=== PATIENT | male | born 1940 | race Caucasian/White ===

== ENCOUNTER → 2018-03-22 | Outpatient (CLI) | payer MEDICARE, OTHER ==
[~2018-03-22] VITALS: Ht 167.6 cm; Wt 78.5 kg
[~2018-03-22] MED LIST: AMLODIPINE BESY10 MG PO; ASPIR 8181 MG PO; ASPIRIN325 PO; BISOPROLOL FUMAR5 MG PO; EFFIENT10 MG PO; IMDUR 30 MG TAB30 M1 PO; LIPITOR80 MG PO; LISINOPRIL20 MG PO; MOBIC15 MG PO; PERCOCET PO; PLAVIX 75 MG TA75 M1 PO; PRINZIDE 20-251 EACH PO; RANITIDINE 150150 M1 PO; TOPROL XL50 MG PO; TYLENOL325 MG PO; VICODIN 5-5001 EACH PO; VITAMIN D250000 UNIT PO
[2018-03-22 11:12] VITALS: BP 126/58
[2018-03-22 11:22] LABS: HEMATOCRIT 41.3 % (42.0-52.0); HEMOGLOBIN 13.9 gm/dL (14.0-18.0); MCH 30.8 pg (26.0-34.0); MCHC 33.6 g/dL (28.0-37.0); MCV 91.5 fL (80.0-100.0); MPV 7.7 fl. (7.2-11.1); RBC 4.51 mil/uL (4.50-6.00); RDW-CV 13.5 % (10.5-14.5); WBC 6.8 thou/uL (4.0-11.0)
[2018-03-22 11:32] LABS: ANION GAP 9 mmol/L (7-16); BUN 25 mg/dL (7-18); CALCIUM 9.7 mg/dL (8.5-10.1); CHLORIDE 105 mmol/L (98-107); CO2 27 mmol/L (21-32); CREATININE 1.2 mg/dL (0.6-1.3); GLUCOSE 81 mg/dL (70-99); SODIUM 141 mmol/L (136-145)
[2018-03-22 11:33] LABS: APTT 22.7 Seconds (25.0-31.3)
[2018-03-22 11:36] LABS: ALBUMIN 3.8 g/dL (3.4-5.0); ALKALINE PHOSPHATASE 69 U/L (46-116); CHOLESTEROL 128 mg/dL (<200); HDL CHOLESTEROL 71 mg/dL (>40); LDL CHOLESTEROL 43 mg/dL (<100); SGOT 18 U/L (15-37); SGPT 25 U/L (30-65); TC:HDL 1.8 Ratio (Not establshd); TOTAL BILIRUBIN 0.5 mg/dL (<0.1-1.0); TOTAL PROTEIN 7.3 g/dL (6.4-8.2); TRIGLYCERIDE 73 mg/dL (<150); VLDL 15 mg/dL (<40)
[2018-03-22 11:38] LABS: SERUM ASSESSMENT Clear
[2018-03-22 13:30] VITALS: BP 126/58
[2018-03-22 13:45] VITALS: BP 141/71
[2018-03-22 14:00] VITALS: BP 127/78
[2018-03-22 14:15] VITALS: BP 123/75
--- NOTE | 2018-03-22 19:36 | EKG ---
[place] [address] ELECTROCARDIOGRAM REPORT Name: DESEAN BAKER Room: [facility]#: [id number] Admission: 03/22/18 Attend Phys: Sher Yañez MD, Discharge: Date of : 44 Report #: [id number] THIS REPORT FOR: //name// [facility] Test Date: 2018-03-22 Test Time: 10:56:05 Pat Name: DESEAN BAKER Department: Room: Gender: [employer] Field Supervisor: [facility] : 1940 Requested By: Sher Yañez Order Number: [id number] Raffi MD: Isrrael Barraza Measurements Intervals [place] Rate: 74 P: 54 IA: 153 QRS: 20 QRSD: 99 T: 38 QT: 378 QTc: 420 Interpretive Statements Sinus rhythm Borderline low voltage, extremity leads No previous ECG available for comparison Electronically Signed On 03-22-2018 19:36:26 CDT by Isrrael Barraza [email or web address] <ELECTRONICALLY SIGNED> By: Isrrael Barraza MD, [facility] 03/22/18 1936 1056 1056 Isrrael Barraza MD, FACC /EPI
--- NOTE | 2018-03-27 11:47 | CARD ---
[address] [address] CARDIAC CATH REPORT Name: DESEAN BAKER Room: [facility]#: [id number] Admission: 03/22/18 Attend Phys: Sher Yañez MD, Discharge: Date of : 44 Report #: [id number] THIS REPORT FOR: //name// APPROVED REPORT Study performed: 03/22/2018 12:21:24 Patient Details Patient Status: Out-Patient Room #: The patient is a 77 year-old male Event Personnel Sher Yañez Desk Editor, Casandra Christian, Rodrigo Seymour, Shwetha Orr RN Mediation Commissioner Procedures Performed Art Access - R femoral artery* , Left VentriculogramLeft Heart Cath w/or w/o Coronaries [id number] [facility] , Selective Right and Left Coronary Angiography Indication Chest pain Risk Factors Hypercholesterolemia, Hypertension Previous Procedures/Diagnoses Previous PCI Procedure Narrative The patient was brought electively to the Cardiac Catheterization Laboratory and was prepped and draped in a sterile manner. The right femoral was infiltrated with 2% Lidocaine subcutaneous anesthesia. A [place] 6 FR sheath was inserted into the right femoral artery. Coronary angiography was performed using coronary diagnostic catheters. The right coronary system was accessed and visualized with a Diagnostic 6fr JR 4 catheter. The left coronary system was accessed and visualized with a Diagnostic 6fr JL 4 catheter. The left ventricle was accessed and visualized with a Diagnostic 6fr Pigtail catheter. Left ventricular/Aortic Valve gradient assessed via catheter pullback. Left ventriculogram was performed in CARR projection. Pre-demployment femoral angiogram was performed . Closure device was deployed with a 6 Fr MynxGrip 6/7F. The patient tolerated the procedure well and there were no complications associated with the procedure. [place] [address] CARDIAC CATH REPORT Name: EDITHORANancyDESEAN Elvia Room: [facility]#: [id number] Admission: 03/22/18 Attend Phys: Sher Yañez MD, Discharge: Date of : 44 Report #: [id number] Intraoperative Conscious Sedation Sedation start time: 12:50 Case end Time: 13:11 Fentanyl 25 mcg Versed 2 mg Fluoro Time: 2.4 minutes Dose: DAP 60848 cGycm2 548.91 mGy Contrast Type and Amount: Visipaque 85 ml Coronary Angiography The patient's coronary anatomy is right dominant. Diagnostic Cath Left Main 0% narrowing LAD Widely patent proximal LAD stent with 20% mid vessel narrowing 30% proximal first diagonal narrowing Circumflex Nondominant vessel with 50% mid vessel narrowing Right Coronary Dominant vessel with 50% proximal narrowing and widely patent mid vessel stent Left Ventriculography The left ventricle is normal in size with normal contractility. The left ventricular ejection fraction is estimated to be 60%. Left ventricular wall motion abnormalities are not present. There is no mitral insufficiency. Hemodynamics The aortic pressure is 123/59 mmHg with a mean of mmHg. The left ventricular pressure is 124/3 mmHg with a mean of mmHg. The left ventricular end diastolic pressure is 10 mmHg. There was no gradient across the aortic valve upon pullback. Conclusion #1 moderate atherosclerotic coronary artery disease characterized by the following: A widely patent proximal LAD stent with 20% mid vessel narrowing and 30% first diagonal narrowing B nondominant circumflex with 50% mid vessel narrowing C dominant right coronary artery with 50% proximal narrowing with widely patent mid right coronary stent #2 normal left ventricular systolic function, [place] [address] CARDIAC CATH REPORT Name: DESEAN BAKER Room: [facility]#: [id number] Admission: 03/22/18 Attend Phys: Sher Yañez MD, Discharge: Date of : 44 Report #: [id number] fraction being 60% #3 normal left-sided hemodynamics study. Recommendations Cardiac Risk Reduction Program Aggressive Medical Therapy Diagnostic Cath Approved by: Sher Yañez MD Date/Time: 03/27/18 1146 hrs. <ELECTRONICALLY SIGNED> By: Sher Yañez MD, [facility] 03/27/18 1147 1147 [id number] Yañez MD, FACC /INF
== END | disposition home or self-care (01) ==
LOC: M.CL 10:33
PROVIDERS: Internal Medicine
DX: I25.10 Atherosclerotic heart disease of native coronary artery without angina pectoris (principal); I10 Essential (primary) hypertension; E78.00 Pure hypercholesterolemia, unspecified; Z98.890 Other specified postprocedural states; Z95.5 Presence of coronary angioplasty implant and graft; Z85.46 Personal history of malignant neoplasm of prostate; Z87.891 Personal history of nicotine dependence; Z79.899 Other long term (current) drug therapy; Z88.8 Allergy status to other drugs, medicaments and biological substances; Z79.82 Long term (current) use of aspirin